=== PATIENT | female | born 1935 | race Caucasian/White ===

== ENCOUNTER 2020-09-01 14:48 | Inpatient (IN) | payer MEDICARE, MEDICAID ==
[~2020-09-01] VITALS: Ht 157.5 cm; Wt 66.2 kg
[2020-09-01] MEDS ORDERED: PIPERACILLIN/TAZ 3.375G PREMIX 50 ML IV NR (15:27)
[2020-09-01] MEDS ORDERED: PIPERACILLIN/TAZOBACTAM 3.375GM/50ML PREMIX IV ONE (15:30)
[2020-09-01] MEDS ORDERED: VANCOMYCIN 1 G PREMIX 200 ML IV SCH (15:30)
[2020-09-01] MEDS ORDERED: SODIUM CHLORIDE 0.9% 1,000 ML IV ONE (15:30)
[2020-09-01 15:57] LABS: BASOPHILS % 0.5 % (0.0-2.0); EOSINOPHILS % 0.4 % (0.0-5.0); HEMATOCRIT. 38.9 % (36.0-48.0); HEMOGLOBIN. 12.8 g/dL (12.0-16.0); LYMPHOCYTES % 10.2 % (20.0-50.0); MEAN CORPUSCULAR HEMOGLOBIN 27.9 pg (28.0-32.0); MEAN PLATELET VOLUME 8.6 fl (7.4-10.4); MONOCYTES % 5.9 % (2.0-8.0); PLATELET 215 x1000/uL (130-400); RED BLOOD CELL COUNT 4.57 mill/uL (4.2-5.4); RED CELL DISTRIBUTION WIDTH 16.1 % (11.6-14.6)
[2020-09-01 16:00] LABS: CHLORIDE 107 mEq/L (98-107)
[2020-09-01 16:04] LABS: BG BASE EXCESS 2.1 mmol/L (-2.0-2.0); BG CARBOXYHEMOGLOBIN 0.9 % (0.5-1.5); BG DEOXYHEMOGLOBIN 8.6 % (0.0-5.0); BG FRACTION INSPIRED OXYGEN 32; BG HCO3 ACT 24.8 mmol/L (22.0-26.0); BG METHEMOGLOBIN 0.1 % (0.0-1.5); BG OXYGEN SATURATION 91.3 % (92.0-98.5); BG OXYHEMOGLOBIN 90.4 % (94.0-97.0); BG PCO2 32.7 mmHg (35.0-45.0); BG PH 7.497 (7.350-7.450); BG PO2 57.3 mmHg (75.0-100.0); BG SAMPLE SITE RIGHT BRACHIAL; BG VENT MODE NASAL CANNULA
[2020-09-01 16:28] LABS: CLARITY URINE CLEAR (CLEAR); COLOR URINE YELLOW (YELLOW); KETONES URINE NEGATIVE (NEGATIVE); LEUKOCYTE ESTERASE URINE NEGATIVE (NEGATIVE); NITRITE URINE NEGATIVE (NEGATIVE); OCCULT BLOOD URINE NEGATIVE (NEGATIVE); PH URINE 5.5 (4.5-8.0); PROTEIN URINE TRACE (NEGATIVE); SPECIFIC GRAVITY URINE 1.022 (1.005-1.030)
[2020-09-01 18:52] LABS: INR 1.1; PROTHROMBIN TIME 11.6 sec (9.6-11.0)
[2020-09-01] MEDS ORDERED: IOHEXOL-350 100 ML BOTTLE ONE (21:51)
[2020-09-02] MEDS ORDERED: ACETAMINOPHEN 325MG TABLET PO PRN (08:30)
[2020-09-02] MEDS ORDERED: PIPERACILLIN/TAZ 3.375G PREMIX 50 ML IV SCH (08:30)
[2020-09-02] MEDS ORDERED: DEXT 5%/0.9% NACL 1,000 ML IV ONE (08:30)
[2020-09-02] MEDS ORDERED: ONDANSETRON HCL 4MG/2ML INJ IV PRN (08:30)
[2020-09-02] MEDS ORDERED: VANCOMYCIN 1 G PREMIX 200 ML IV SCH (08:30)
[2020-09-02] MEDS ORDERED: DEXT 5%/0.9% NACL 1,000 ML IV SCH (09:45)
[2020-09-02] MEDS: ENOXAPARIN 30MG/0.3ML SYR SUBCUT SCH (12:15)
[2020-09-02] MEDS: PIPERACILLIN/TAZOBACTAM 3.375 G in DEXT 5% WATER 100 ML IV SCH ×2 (12:15→18:15)
[2020-09-02] MEDS ORDERED: ALBUTEROL 6.7GM HFA INHALER ORI PRN (13:15)
[2020-09-02] MEDS: VANCOMYCIN 1 G PREMIX 200 ML IV SCH (16:30)
[2020-09-02 20:22] LABS: BASOPHILS % 0.1 % (0.0-2.0); EOSINOPHILS % 0.3 % (0.0-5.0); HEMATOCRIT. 36.1 % (36.0-48.0); HEMOGLOBIN. 11.9 g/dL (12.0-16.0); LYMPHOCYTES % 8.8 % (20.0-50.0); MEAN CORPUSCULAR HEMOGLOBIN 27.6 pg (28.0-32.0); MEAN CORPUSCULAR VOLUME 83.6 fL (81.0-99.0); MEAN PLATELET VOLUME 8.7 fl (7.4-10.4); MONOCYTES % 5.3 % (2.0-8.0); NEUTROPHILS % 85.5 % (40.0-76.0); PLATELET 189 x1000/uL (130-400); RED BLOOD CELL COUNT 4.31 mill/uL (4.2-5.4); RED CELL DISTRIBUTION WIDTH 15.9 % (11.6-14.6)
[2020-09-02 20:30] LABS: CHLORIDE 108 mEq/L (98-107)
[2020-09-02 21:34] LABS: FOLIC ACID (FOLATE) SERUM > 20.00 ng/mL (>5.38)
[2020-09-02 21:41] LABS: VITAMIN B12 SERUM 1846 pg/mL (211-911)
[2020-09-02 23:41] LABS: ETHANOL BLOOD < 10 mg/dL
[2020-09-02 23:44] LABS: LDL CHOLESTEROL 142 mg/dL (5-100)
[2020-09-02 23:46] LABS: HDL CHOLESTEROL 34 mg/dL (40-59); T4 FREE 1.19 ng/dL (0.76-1.46)
[2020-09-03] MEDS: LOSARTAN POTASSIUM 100 MG TABLET PO SCH ×2 (01:00→09:56)
[2020-09-03] MEDS: AMLODIPINE 5MG TABLET PO SCH ×3 (01:50→21:24)
[2020-09-03] MEDS: PIPERACILLIN/TAZOBACTAM 3.375 G in DEXT 5% WATER 100 ML IV SCH ×3 (01:50→16:53)
[2020-09-03 04:25] LABS: CHLORIDE 107 mEq/L (98-107)
[2020-09-03 04:32] LABS: BASOPHILS % 0.7 % (0.0-2.0); EOSINOPHILS % 0.5 % (0.0-5.0); HEMOGLOBIN. 12.4 g/dL (12.0-16.0); LYMPHOCYTES % 7.9 % (20.0-50.0); MEAN CORPUSCULAR HEMOGLOBIN 27.7 pg (28.0-32.0); MEAN CORPUSCULAR VOLUME 84.7 fL (81.0-99.0); MEAN PLATELET VOLUME 8.6 fl (7.4-10.4); MONOCYTES % 5.6 % (2.0-8.0); NEUTROPHILS % 85.3 % (40.0-76.0); PLATELET 208 x1000/uL (130-400); RED BLOOD CELL COUNT 4.48 mill/uL (4.2-5.4); RED CELL DISTRIBUTION WIDTH 15.6 % (11.6-14.6)
[2020-09-03] MEDS: CLOPIDOGREL 75MG TABLET PO SCH (09:57)
[2020-09-03] MEDS: ENOXAPARIN 30MG/0.3ML SYR SUBCUT SCH (09:58)
[2020-09-03] MEDS ORDERED: CLONIDINE 0.1MG TABLET PO PRN (14:00)
[2020-09-03 14:45] VITALS: BP_SYST 123; BP_SYST 127; BP_DIAS 54
[2020-09-03] MEDS ORDERED: ENALAPRIL 1.25MG/ML VIAL 1ML IV PRN (15:45)
[2020-09-03] MEDS ORDERED: HYDR12.54 MT (16:09)
[2020-09-03] MEDS ORDERED: CEPH500C2 MT (16:09)
[2020-09-03] MEDS ORDERED: TRAM150C25 MT (16:09)
[2020-09-03] MEDS ORDERED: AMLO5TAB88 MT (16:09)
[2020-09-03] MEDS: VANCOMYCIN 1 G PREMIX 200 ML IV SCH (16:53)
[2020-09-03] MEDS: DEXAMETHASONE 10 MG/ML VIAL IV SCH (16:53)
[2020-09-03 17:00] VITALS: BP 133/62
[2020-09-03 20:00] VITALS: BP 172/81
[2020-09-04] VITALS: BP 155/71
[2020-09-04] MEDS: PIPERACILLIN/TAZOBACTAM 3.375 G in DEXT 5% WATER 100 ML IV SCH ×3 (01:28→16:05)
[2020-09-04 04:00] VITALS: BP 133/64
[2020-09-04 08:00] VITALS: BP 156/80
[2020-09-04 08:12] LABS: HEMATOCRIT. 39.9 % (36.0-48.0); HEMOGLOBIN. 13.2 g/dL (12.0-16.0); MEAN CORPUSCULAR HEMOGLOBIN 27.6 pg (28.0-32.0); MEAN CORPUSCULAR VOLUME 83.8 fL (81.0-99.0); MEAN PLATELET VOLUME 8.8 fl (7.4-10.4); PLATELET 241 x1000/uL (130-400); RED BLOOD CELL COUNT 4.76 mill/uL (4.2-5.4); RED CELL DISTRIBUTION WIDTH 15.9 % (11.6-14.6)
[2020-09-04 08:22] LABS: CHLORIDE 106 mEq/L (98-107)
[2020-09-04] MEDS: DEXAMETHASONE 10 MG/ML VIAL IV SCH (09:29)
[2020-09-04] MEDS: ENOXAPARIN 30MG/0.3ML SYR SUBCUT SCH (09:29)
[2020-09-04] MEDS: AMLODIPINE 5MG TABLET PO SCH ×2 (09:30→20:50)
[2020-09-04] MEDS: CLOPIDOGREL 75MG TABLET PO SCH (09:30)
[2020-09-04] MEDS: LOSARTAN POTASSIUM 100 MG TABLET PO SCH (09:31)
[2020-09-04 12:00] VITALS: BP 150/76
[2020-09-04] MEDS: VANCOMYCIN 750 MG PREMIX 150 ML IV SCH (12:29)
[2020-09-04 12:31] LABS: PLATELET ESTIMATE NORMAL
[2020-09-04 16:00] VITALS: BP 128/84
[2020-09-04 20:00] VITALS: BP 142/79
[2020-09-04] MEDS: ATORVASTATIN CALCIUM 20MG TABLET PO SCH (20:51)
[2020-09-05] VITALS: BP 141/68
[2020-09-05] MEDS: PIPERACILLIN/TAZOBACTAM 3.375 G in DEXT 5% WATER 100 ML IV SCH ×3 (00:13→16:52)
[2020-09-05 04:00] VITALS: BP 121/70
[2020-09-05] MEDS: VANCOMYCIN 750 MG PREMIX 150 ML IV SCH ×2 (05:39→22:48)
[2020-09-05 08:00] VITALS: BP 134/62
[2020-09-05 08:07] LABS: HEMATOCRIT. 40.2 % (36.0-48.0); HEMOGLOBIN. 13.5 g/dL (12.0-16.0); MEAN CORPUSCULAR HEMOGLOBIN 28.2 pg (28.0-32.0); MEAN CORPUSCULAR VOLUME 83.9 fL (81.0-99.0); PLATELET 269 x1000/uL (130-400); RED BLOOD CELL COUNT 4.79 mill/uL (4.2-5.4); RED CELL DISTRIBUTION WIDTH 16.2 % (11.6-14.6)
[2020-09-05] MEDS: ENOXAPARIN 30MG/0.3ML SYR SUBCUT SCH (08:28)
[2020-09-05] MEDS: DEXAMETHASONE 10 MG/ML VIAL IV SCH (08:33)
[2020-09-05] MEDS: AMLODIPINE 5MG TABLET PO SCH ×2 (08:33→20:36)
[2020-09-05] MEDS: LOSARTAN POTASSIUM 100 MG TABLET PO SCH (08:33)
[2020-09-05] MEDS: CLOPIDOGREL 75MG TABLET PO SCH (08:34)
[2020-09-05 12:00] VITALS: BP 130/60
[2020-09-05 16:00] VITALS: BP 133/64
[2020-09-05 19:09] LABS: BARBITURATE SCREEN Negative ug/mL (Cutoff:0.1); BENZODIAZEPINE SCREEN Negative ng/mL (Cutoff:20); OPIATES SCREEN Negative ng/mL (Cutoff:5); PHENCYCLIDINE SCREEN Negative ng/mL (Cutoff:8)
[2020-09-05 20:00] VITALS: BP 126/69
[2020-09-05 20:23] LABS: PLATELET ESTIMATE NORMAL
[2020-09-05] MEDS: ATORVASTATIN CALCIUM 20MG TABLET PO SCH (20:35)
[2020-09-06] VITALS: BP 135/58
[2020-09-06] MEDS: PIPERACILLIN/TAZOBACTAM 3.375 G in DEXT 5% WATER 100 ML IV SCH ×3 (02:48→16:48)
[2020-09-06 04:00] VITALS: BP 140/55
[2020-09-06 07:39] LABS: HEMATOCRIT. 38.9 % (36.0-48.0); MEAN CORPUSCULAR HEMOGLOBIN 28.1 pg (28.0-32.0); MEAN CORPUSCULAR VOLUME 84.3 fL (81.0-99.0); MEAN PLATELET VOLUME 8.8 fl (7.4-10.4); PLATELET 297 x1000/uL (130-400); RED BLOOD CELL COUNT 4.62 mill/uL (4.2-5.4); RED CELL DISTRIBUTION WIDTH 16.2 % (11.6-14.6)
[2020-09-06 08:00] VITALS: BP 135/61
[2020-09-06] MEDS ORDERED: POTASSIUM CHLORIDE 20MEQ TABLET SR PO NR (08:00)
[2020-09-06] MEDS: ENOXAPARIN 30MG/0.3ML SYR SUBCUT SCH (11:11)
[2020-09-06] MEDS: AMLODIPINE 5MG TABLET PO SCH ×2 (11:12→20:50)
[2020-09-06] MEDS: CLOPIDOGREL 75MG TABLET PO SCH (11:13)
[2020-09-06] MEDS: DEXAMETHASONE 10 MG/ML VIAL IV SCH (11:13)
[2020-09-06] MEDS: LOSARTAN POTASSIUM 100 MG TABLET PO SCH (11:13)
[2020-09-06 12:00] VITALS: BP 128/61
[2020-09-06 16:00] VITALS: BP_SYST 114; BP_SYST 129; BP_DIAS 55; BP_DIAS 58
[2020-09-06 20:00] VITALS: BP 128/58
[2020-09-06 20:46] LABS: PLATELET ESTIMATE NORMAL
[2020-09-06] MEDS: DEXT 5%/0.45% NACL 1000ML 1,000 ML IV SCH (20:49)
[2020-09-06] MEDS: ATORVASTATIN CALCIUM 20MG TABLET PO SCH (20:55)
[2020-09-06] MEDS: DOXYCYCLINE HYCLATE 100MG CAPSULE PO SCH (20:55)
[2020-09-06] MEDS ORDERED: VANCOMYCIN 750 MG PREMIX 150 ML IV SCH (23:00)
[2020-09-07] VITALS: BP 130/70
[2020-09-07] MEDS: PIPERACILLIN/TAZOBACTAM 3.375 G in DEXT 5% WATER 100 ML IV SCH (00:24)
[2020-09-07 04:00] VITALS: BP 146/67
[2020-09-07 08:00] VITALS: BP 135/76
[2020-09-07] MEDS: CLOPIDOGREL 75MG TABLET PO SCH (09:37)
[2020-09-07] MEDS: CHOLECALCIFEROL (D3) 1000 UNIT TABLET PO SCH (09:37)
[2020-09-07] MEDS: DOXYCYCLINE HYCLATE 100MG CAPSULE PO SCH ×2 (09:37→22:27)
[2020-09-07] MEDS: AMLODIPINE 5MG TABLET PO SCH ×2 (09:37→22:28)
[2020-09-07] MEDS: LOSARTAN POTASSIUM 100 MG TABLET PO SCH (09:37)
[2020-09-07] MEDS: ENOXAPARIN 30MG/0.3ML SYR SUBCUT SCH (09:38)
[2020-09-07] MEDS: DEXAMETHASONE 10 MG/ML VIAL IV SCH (09:38)
[2020-09-07 12:00] VITALS: BP 138/72
[2020-09-07 16:00] VITALS: BP 146/68
[2020-09-07 20:00] VITALS: BP 135/64
[2020-09-07] MEDS: ATORVASTATIN CALCIUM 20MG TABLET PO SCH (22:27)
[2020-09-07] MEDS: CEFTRIAXONE 1,000 MG in DEXTROSE 5% WATER 50 ML IV SCH (22:27)
[2020-09-07] MEDS: DEXT 5%/0.45% NACL 1000ML 1,000 ML IV SCH (22:38)
[2020-09-08] VITALS: BP 134/68
[2020-09-08] MEDS: DEXT 5%/0.45% NACL 1000ML 1,000 ML IV SCH (03:50)
[2020-09-08 04:00] VITALS: BP 120/72
[2020-09-08] MEDS: ENOXAPARIN 30MG/0.3ML SYR SUBCUT SCH (09:22)
[2020-09-08] MEDS: AMLODIPINE 5MG TABLET PO SCH ×2 (09:23→21:00)
[2020-09-08] MEDS: CLOPIDOGREL 75MG TABLET PO SCH (09:23)
[2020-09-08] MEDS: DEXAMETHASONE 10 MG/ML VIAL IV SCH (09:23)
[2020-09-08] MEDS: CHOLECALCIFEROL (D3) 1000 UNIT TABLET PO SCH (09:23)
[2020-09-08] MEDS: LOSARTAN POTASSIUM 100 MG TABLET PO SCH (09:23)
[2020-09-08] MEDS: DOXYCYCLINE HYCLATE 100MG CAPSULE PO SCH (09:23)
[2020-09-08 12:00] VITALS: BP 140/59
[2020-09-08 16:00] VITALS: BP 142/59
[2020-09-08] MEDS: CEFTRIAXONE 1,000 MG in DEXTROSE 5% WATER 50 ML IV SCH (17:01)
[2020-09-08 18:26] LABS: HEMATOCRIT. 38.9 % (36.0-48.0); HEMOGLOBIN. 13.2 g/dL (12.0-16.0); MEAN CORPUSCULAR HEMOGLOBIN 28.4 pg (28.0-32.0); MEAN CORPUSCULAR VOLUME 83.8 fL (81.0-99.0); MEAN PLATELET VOLUME 8.7 fl (7.4-10.4); PLATELET 344 x1000/uL (130-400); RED BLOOD CELL COUNT 4.64 mill/uL (4.2-5.4); RED CELL DISTRIBUTION WIDTH 15.8 % (11.6-14.6)
[2020-09-08 18:34] LABS: CHLORIDE 107 mEq/L (98-107)
[2020-09-08 20:00] VITALS: BP 144/66
[2020-09-08 20:44] LABS: PLATELET ESTIMATE NORMAL
[2020-09-09] VITALS: BP 113/39
[2020-09-09] MEDS: ATORVASTATIN CALCIUM 20MG TABLET PO SCH ×2 (00:58→21:52)
[2020-09-09] MEDS: DOXYCYCLINE HYCLATE 100MG CAPSULE PO SCH ×3 (00:58→21:52)
[2020-09-09 04:00] VITALS: BP 118/55
[2020-09-09 08:00] VITALS: BP 154/84
[2020-09-09] MEDS: CLOPIDOGREL 75MG TABLET PO SCH (09:26)
[2020-09-09] MEDS: CHOLECALCIFEROL (D3) 1000 UNIT TABLET PO SCH (09:26)
[2020-09-09] MEDS: LOSARTAN POTASSIUM 100 MG TABLET PO SCH (09:26)
[2020-09-09] MEDS: DEXAMETHASONE 10 MG/ML VIAL IV SCH (09:27)
[2020-09-09] MEDS: ENOXAPARIN 30MG/0.3ML SYR SUBCUT SCH ×2 (09:27→12:26)
[2020-09-09] MEDS: AMLODIPINE 5MG TABLET PO SCH ×2 (09:27→21:53)
[2020-09-09 12:00] VITALS: BP 167/56
[2020-09-09] MEDS ORDERED: AMLODIPINE 5MG TABLET PO ONE (14:00)
[2020-09-09] MEDS ORDERED: AMLODIPINE 5MG TABLET PO NR (14:00)
[2020-09-09 16:00] VITALS: BP 166/68
[2020-09-09] MEDS: CEFTRIAXONE 1,000 MG in DEXTROSE 5% WATER 50 ML IV SCH (18:08)
[2020-09-09] MEDS ORDERED: HYDRALAZINE HCL 25MG TABLET PO SCH (19:09)
[2020-09-09 20:00] VITALS: BP 153/47
[2020-09-09] MEDS: HYDRALAZINE HCL 25MG TABLET PO SCH (23:57)
[2020-09-10] VITALS: BP 173/61
[2020-09-10 04:00] VITALS: BP 165/82
[2020-09-10] MEDS: HYDRALAZINE HCL 25MG TABLET PO SCH ×3 (05:41→20:51)
[2020-09-10 09:00] VITALS: BP 126/72
[2020-09-10] MEDS: DEXAMETHASONE 10 MG/ML VIAL IV SCH (09:34)
[2020-09-10] MEDS: ENOXAPARIN 30MG/0.3ML SYR SUBCUT SCH (09:35)
[2020-09-10] MEDS: CLOPIDOGREL 75MG TABLET PO SCH (09:35)
[2020-09-10] MEDS: LOSARTAN POTASSIUM 100 MG TABLET PO SCH (09:35)
[2020-09-10] MEDS: CHOLECALCIFEROL (D3) 1000 UNIT TABLET PO SCH (09:35)
[2020-09-10] MEDS: AMLODIPINE 5MG TABLET PO SCH ×2 (09:35→20:50)
[2020-09-10] MEDS: DOXYCYCLINE HYCLATE 100MG CAPSULE PO SCH ×2 (09:35→20:50)
[2020-09-10 12:00] VITALS: BP 145/79
[2020-09-10 16:00] VITALS: BP 123/64
[2020-09-10] MEDS: CEFTRIAXONE 1,000 MG in DEXTROSE 5% WATER 50 ML IV SCH (18:02)
[2020-09-10 20:00] VITALS: BP 130/59
[2020-09-10] MEDS: ATORVASTATIN CALCIUM 20MG TABLET PO SCH (20:51)
[2020-09-11] VITALS: BP 140/59
[2020-09-11 04:00] VITALS: BP 140/62
[2020-09-11] MEDS: HYDRALAZINE HCL 25MG TABLET PO SCH ×3 (05:15→21:29)
[2020-09-11 06:51] LABS: HEMOGLOBIN. 13.5 g/dL (12.0-16.0); MEAN CORPUSCULAR HEMOGLOBIN 27.7 pg (28.0-32.0); MEAN CORPUSCULAR VOLUME 84.1 fL (81.0-99.0); MEAN PLATELET VOLUME 8.8 fl (7.4-10.4); PLATELET 352 x1000/uL (130-400); RED BLOOD CELL COUNT 4.87 mill/uL (4.2-5.4)
[2020-09-11 08:00] VITALS: BP 137/69
[2020-09-11 08:18] LABS: CHLORIDE 114 mEq/L (98-107)
[2020-09-11] MEDS: CLOPIDOGREL 75MG TABLET PO SCH (09:52)
[2020-09-11] MEDS: AMLODIPINE 5MG TABLET PO SCH ×2 (09:52→21:30)
[2020-09-11] MEDS: LOSARTAN POTASSIUM 100 MG TABLET PO SCH (09:52)
[2020-09-11] MEDS: CHOLECALCIFEROL (D3) 1000 UNIT TABLET PO SCH (09:52)
[2020-09-11] MEDS: DOXYCYCLINE HYCLATE 100MG CAPSULE PO SCH ×2 (09:52→21:29)
[2020-09-11] MEDS: ENOXAPARIN 30MG/0.3ML SYR SUBCUT SCH (09:53)
[2020-09-11] MEDS: DEXAMETHASONE 10 MG/ML VIAL IV SCH (09:53)
[2020-09-11 12:00] VITALS: BP 147/70
[2020-09-11 13:50] LABS: PLATELET ESTIMATE NORMAL
[2020-09-11] MEDS ORDERED: TETANUS, DIPHTHERIA, PERTUSSIS VAC/PF 0.5ML (>7YR OLD) IM ONE (15:15)
[2020-09-11 15:51] VITALS: BP 150/56
[2020-09-11 20:00] VITALS: BP 161/64
[2020-09-11] MEDS: CEFTRIAXONE 1,000 MG in DEXTROSE 5% WATER 50 ML IV SCH (21:29)
[2020-09-11] MEDS: ATORVASTATIN CALCIUM 20MG TABLET PO SCH (21:29)
[2020-09-11] MEDS: CEPHALEXIN 250MG CAPSULE PO SCH (21:29)
[2020-09-12] VITALS (7 sets, daily range): BP systolic 116–159; BP diastolic 58–78
[2020-09-12] MEDS: CEPHALEXIN 250MG CAPSULE PO SCH ×2 (06:10→13:32)
[2020-09-12] MEDS: HYDRALAZINE HCL 25MG TABLET PO SCH ×2 (06:10→13:30)
[2020-09-12 08:11] LABS: HEMOGLOBIN. 14.4 g/dL (12.0-16.0); MEAN CORPUSCULAR VOLUME 85.5 fL (81.0-99.0); MEAN PLATELET VOLUME 9.1 fl (7.4-10.4); PLATELET 353 x1000/uL (130-400); RED BLOOD CELL COUNT 5.15 mill/uL (4.2-5.4); RED CELL DISTRIBUTION WIDTH 16.9 % (11.6-14.6)
[2020-09-12 08:54] LABS: CHLORIDE 113 mEq/L (98-107)
[2020-09-12] MEDS ORDERED: SODIUM CHLORIDE 0.45% 1,000 ML IV SCH (09:15)
[2020-09-12 09:53] LABS: BG BASE EXCESS -0.9 mmol/L (-2.0-2.0); BG CARBOXYHEMOGLOBIN 0.6 % (0.5-1.5); BG DEOXYHEMOGLOBIN 7.7 % (0.0-5.0); BG HCO3 ACT 23.5 mmol/L (22.0-26.0); BG METHEMOGLOBIN 0.3 % (0.0-1.5); BG OXYGEN SATURATION 92.2 % (92.0-98.5); BG OXYHEMOGLOBIN 91.4 % (94.0-97.0); BG PCO2 38.3 mmHg (35.0-45.0); BG PH 7.406 (7.350-7.450); BG PO2 62.5 mmHg (75.0-100.0); BG SAMPLE SITE RIGHT RADIAL; BG VENT MODE ROOM AIR
[2020-09-12] MEDS: CHOLECALCIFEROL (D3) 1000 UNIT TABLET PO SCH (10:12)
[2020-09-12] MEDS: LOSARTAN POTASSIUM 100 MG TABLET PO SCH (10:13)
[2020-09-12] MEDS: ENOXAPARIN 30MG/0.3ML SYR SUBCUT SCH (10:13)
[2020-09-12] MEDS: CLOPIDOGREL 75MG TABLET PO SCH (10:13)
[2020-09-12] MEDS: AMLODIPINE 5MG TABLET PO SCH ×2 (10:13→20:58)
[2020-09-12] MEDS: DEXAMETHASONE 10 MG/ML VIAL IV SCH (10:13)
[2020-09-12 18:37] LABS: PLATELET ESTIMATE NORMAL
[2020-09-12] MEDS: ATORVASTATIN CALCIUM 20MG TABLET PO SCH (20:57)
== END 2020-09-12 21:50 | disposition home health service (06) | DRG 871 ==
LOC: ER 14:48 → MICUSO 18:44 → EDBEDREQSVC 18:57 → EDBEDREQ 18:57 → 7WST 09-03 11:56
PROVIDERS: ADMIT Internal Medicine; ATTEND Internal Medicine
DX: A41.89 Other specified sepsis (principal); U07.1 COVID-19; J96.01 Acute respiratory failure with hypoxia; J12.89 Other viral pneumonia; G92 Toxic encephalopathy; J15.0 Pneumonia due to Klebsiella pneumoniae; I63.9 Cerebral infarction, unspecified; E44.0 Moderate protein-calorie malnutrition; L03.116 Cellulitis of left lower limb; L03.115 Cellulitis of right lower limb; R65.20 Severe sepsis without septic shock; F03.90 Unspecified dementia, unspecified severity, without behavioral disturbance, psychotic disturbance, mood disturbance, and anxiety; E11.9 Type 2 diabetes mellitus without complications; I50.9 Heart failure, unspecified; E78.5 Hyperlipidemia, unspecified; M19.90 Unspecified osteoarthritis, unspecified site; B97.89 Other viral agents as the cause of diseases classified elsewhere; I11.0 Hypertensive heart disease with heart failure; M54.5 Low back pain; N28.9 Disorder of kidney and ureter, unspecified; R00.1 Bradycardia, unspecified; Z86.73 Personal history of transient ischemic attack (TIA), and cerebral infarction without residual deficits; Z87.01 Personal history of pneumonia (recurrent); Z68.26 Body mass index [BMI] 26.0-26.9, adult; Z79.899 Other long term (current) drug therapy; S81.812A Laceration without foreign body, left lower leg, initial encounter; S81.811A Laceration without foreign body, right lower leg, initial encounter
CPT/HCPCS: 36415; 36600; 71045; 71275; 73590; 80048; 80053; 80061; 80202; 80307; 80320; 81003; 82140; 82375; 82607; 82746; 82805; 82962; 83036; 83605; 83735; 83880; 84439; 84443; 84481; 84484; 85025; 85651; 86140; 86850; 86900; 87070; 87186; 87635; 90715; 93005; 93880; 96365; 99291; A6261; C1893; J0696; J1100; J1650; J2543; J3370; J7030; J7042; J7060; Q9967; U0003; G0480